=== PATIENT | male | born 1950 | race Caucasian/White ===

== ENCOUNTER 2018-11-28 11:17 | Emergency (ER) | payer MEDICAID ==
[~2018-11-28] VITALS: Ht 172.7 cm; Wt 83.9 kg
[2018-11-28] MEDS ORDERED: METFORMIN (11:44)
[2018-11-28] MEDS ORDERED: GLIMEPIRIDE (11:44)
--- NOTE | 2018-11-28 11:53 | NUR ---
PT IS IN ROOM #2B. DR HERRON EVALUATED THE PT.
--- NOTE | 2018-11-28 12:28 | NUR ---
PT WAS D/C'd TO HOME. D/C INSTRUCTIONS GIVEN TO THE PT.
[2018-11-28 12:29] VITALS: BP 154/89
== END 2018-11-28 12:30 | disposition home or self-care (01) ==
LOC: ER 11:20
DX: L08.9 Local infection of the skin and subcutaneous tissue, unspecified (principal); B95.8 Unspecified staphylococcus as the cause of diseases classified elsewhere; Z79.899 Other long term (current) drug therapy
CPT/HCPCS: A4663

== ENCOUNTER 2019-03-11 20:10 | Emergency (ER) | payer SELFPAY ==
[~2019-03-11] VITALS: Ht 172.7 cm; Wt 79.8 kg
[~2019-03-11 20:10] MED LIST: GLIMEPIRIDE; METFORMIN
--- NOTE | 2019-03-11 21:56 | NUR ---
Patient discharged to home in stable conditon. Written and verbal after care instructions given. Patient verbalizes understanding of instructions. Patient ambulated with stable gait.
[2019-03-11 22:00] VITALS: BP 125/84
== END 2019-03-11 22:01 | disposition home or self-care (01) ==
LOC: ER 20:11
DX: L50.5 Cholinergic urticaria (principal); B95.8 Unspecified staphylococcus as the cause of diseases classified elsewhere; E11.9 Type 2 diabetes mellitus without complications; Z79.84 Long term (current) use of oral hypoglycemic drugs
CPT/HCPCS: A4663